=== PATIENT | female | born 1970 | race Two or more races ===

== ENCOUNTER 2021-03-10 17:37 | Emergency (ER) | payer OTHER ==
[~2021-03-10] VITALS: Ht 165.1 cm; Wt 68.0 kg
[2021-03-10] MEDS ORDERED: RELAFEN DS1000 MG PO (17:57)
[2021-03-10] MEDS ORDERED: SINGULAIR10 MG PO (17:57)
[2021-03-10] MEDS ORDERED: ZESTRIL20 MG PO (17:57)
== END 2021-03-10 20:10 | disposition home or self-care (01) ==
LOC: ER 17:37
DX: M25.561 Pain in right knee (principal)

== ENCOUNTER 2021-03-11 08:09 | Emergency (ER) | payer OTHER ==
[~2021-03-11] VITALS: Ht 160 cm; Wt 88.5 kg
[~2021-03-11 08:09] MED LIST: RELAFEN DS1000 MG PO; SINGULAIR10 MG PO; ZESTRIL20 MG PO
== END 2021-03-11 14:14 | disposition home or self-care (01) ==
LOC: ER 08:09
DX: M79.662 Pain in left lower leg (principal); M79.661 Pain in right lower leg

== ENCOUNTER → 2022-05-06 08:00 | Outpatient (CLI) | payer OTHER ==
[~2022-05-06] VITALS: Ht 160 cm; Wt 95.3 kg
[~2022-05-06 08:00] MED LIST changes: +ELIQUIS5 MG PO
== END | disposition home or self-care (01) ==
LOC: LAB 08:00 → SURH 05-13 07:00 → EDSTATUS 05-13 07:00 → SURH 05-13 10:00
PROVIDERS: ATTEND Orthopaedic Surgery
DX: T84.023A Instability of internal left knee prosthesis, initial encounter (principal); Z20.828 Contact with and (suspected) exposure to other viral communicable diseases; Z01.812 Encounter for preprocedural laboratory examination

== ENCOUNTER 2022-05-21 17:47 | Inpatient (IN) | payer OTHER ==
[~2022-05-21] VITALS: Ht 160 cm; Wt 95.3 kg
--- NOTE | 2022-05-21 17:58 | NUR ---
SE RECIBE PACIENTE ALERTA, ORIENTADA X 3 ESFERAS REFIERE SE MAREO Y SE SCOTT EN LOBATO TRABAJO SE RAJIV EN TU ,REFIERE TENER DOLOR DE TU. SE ESTIMAN S/V SE REALIZA EKG , SE PRESENTA A RACHID.PATEL.
--- NOTE | 2022-05-21 19:23 | NUR ---
PACIENTE EVALUADA POR DRA AMAN[place] [facility] [facility], SE ORIENTA A PACIENTE SOBRE EL MISMO Y REFIERE ENTENDER. SE COLECTAN MUESTRAS Y SE ADM MED BAJO MEDIDAS ASEPTICAS.
--- NOTE | 2022-05-22 08:11 | NUR ---
SE RECIBE PACIENTE DEL TURNO ANTERIOR ALERTA Y ORIENTADA X3, UBICADA EN DULCE CON BARANDAS ELEVADAS POR PRECUACION A CAIDAS. PACIENTE CONECTADA A MONITOR CARIDIACO. SE MANTIENE PACIENTE BAJO OBSERVACION POR CAMBIOS SIGNIFICATIVOS EN LOBATO TRATAMIENTO.
== END 2022-05-23 20:41 | disposition home or self-care (01) | DRG 312 ==
LOC: ER 17:47 → MEDJ 05-22 13:03 → MEDI 05-23 09:25
PROVIDERS: ADMIT Internal Medicine; ATTEND Internal Medicine
PROC: BW28ZZZ Computerized Tomography (CT Scan) of Head (ICD-10-PCS; principal; 2022-05-21)
PROC: BW40ZZZ Ultrasonography of Abdomen (ICD-10-PCS; 2022-05-21)
PROC: B030ZZZ Magnetic Resonance Imaging (MRI) of Brain (ICD-10-PCS; 2022-05-22)
PROC: B348ZZZ Ultrasonography of Bilateral Internal Carotid Arteries (ICD-10-PCS; 2022-05-22)
PROC: B345ZZZ Ultrasonography of Bilateral Common Carotid Arteries (ICD-10-PCS; 2022-05-22)
PROC: 4A12X4Z Monitoring of Cardiac Electrical Activity, External Approach (ICD-10-PCS; 2022-05-22)
DX: R55 Syncope and collapse (principal); Z20.822 Contact with and (suspected) exposure to COVID-19
CPT/HCPCS: 70551

== ENCOUNTER 2023-08-19 07:13 | Outpatient (CLI) | payer OTHER | END 2023-08-19 07:16 | disposition home or self-care (01) | LOC: NUCLEAR 07:13 | PROVIDERS: ATTEND Orthopaedic Surgery | DX: T84.092A Other mechanical complication of internal right knee prosthesis, initial encounter (principal) ==

== ENCOUNTER 2024-01-05 07:30 | Inpatient (IN) | payer OTHER ==
[2024-01-05] MEDS ORDERED: TROPOL (09:12)
[2024-01-05] MEDS ORDERED: LOSARTAN (09:12)
[2024-01-05 09:13] LABS: HEMATOCRIT 39.7 % (36.0-45.00); HEMOGLOBIN 13.8 g/dL (12.0-15.00); MEAN CELL VOLUME 88.7 fL (80.00-100.00); MEAN CORPUSCULAR HEMOGLOBIN 30.9 pg (27.00-32.0); MEAN CORPUSCULAR HGB CONC 34.8 g/dl (32.0-36.0); PLATELET COUNT 258 K/uL (150-450); RED BLOOD COUNT 4.47 M/uL (4.00-6.00); RED CELL DISTRIBUTION WIDTH 13.2 % (11.5-14.5)
[2024-01-05] MEDS ORDERED: CLARITIN (09:13)
[2024-01-05 09:19] LABS: PH,URINE 7.5 (5.0-8.0); URINE APPEARANCE Clear; URINE BILIRRUBIN Negative (NEGATIVE); URINE BLOOD Negative; URINE COLOR Yellow; URINE GLUCOSE Negative (NEGATIVE); URINE LEUKOCYTE Small; URINE NITRATE Negative; URINE PROTEIN Negative (NEGATIVE)
[2024-01-05 09:25] LABS: URINE BACTERIA 1601.1 uL (0.0-1933); URINE EPITHELIAL CELLS 27.3 uL (0.0-38.8); URINE WBC 12.3 uL (0.0-23.2)
[2024-01-05 09:48] LABS: INR 1.03; PARTIAL THROMBOPLASTIN TIME 28.3 SECONDS (22.0-34.0); PROTHROMBIN TIME 10.8 SECONDS (9.0-11.5)
[2024-01-05 10:16] LABS: ALBUMIN 3.8 gm/dL (3.4-5.0); BILIRUBIN TOTAL 0.93 mg/dL (0.3-1.2); CALCIUM 9.5 mg/dL (8.5-10.1); CREATININE SERUM 0.59 mg/dL (0.55-1.02); GFR 106.22; GLOBULINA 3.9 G/DL (2.4-3.5); POTASSIUM 3.39 mEq/L (3.5-5.1); TOTAL PROTEIN 7.7 gm/dL (6.4-8.2)
[2024-01-12] MEDS ORDERED: CEFAZOLIN SODIUM 1,000 MG VIAL ONE (14:53)
[2024-01-12] MEDS ORDERED: VANCOMYCIN HCL 1,000 MG VIAL ONE (15:21)
[2024-01-12] MEDS ORDERED: BUPIVACAINE HCL/PF 0.5% 30ML ML ONE (15:21)
[2024-01-12] MEDS ORDERED: POVIDONE-IODINE 3 EA MED..SWAB TOP ONE (15:21)
[2024-01-12] MEDS ORDERED: LIDOCAINE HCL 1%/Epi 20ML VIAL IJ ONE ×2 (15:21→22:15)
[2024-01-12] MEDS ORDERED: KETOROLAC TROMETHAMINE 60 MG VIAL IM ONE ×2 (15:21→22:15)
[2024-01-12] MEDS ORDERED: DEXAMETHASONE SODIUM PHOSPHATE 4 MG/ML VIAL ONE (16:32)
[2024-01-12] MEDS ORDERED: ONDANSETRON HCL 2 MG/ML VIAL IV PRN (18:15)
[2024-01-12] MEDS ORDERED: MORPHINE SULFATE 4 MG/ML CARTRIDGE IV PRN (18:15)
[2024-01-12] MEDS ORDERED: SODIUM CHLORIDE 0.45 % 1,000 ML IV SCH (18:15)
[2024-01-12] MEDS ORDERED: MORPHINE SULFATE 4 MG/ML CARTRIDGE IV ONE (22:15)
[2024-01-12] MEDS ORDERED: CEFAZOLIN SODIUM 1,000 MG VIAL IV ONE (22:15)
[2024-01-12] MEDS ORDERED: POVIDONE-IODINE 0.75 OZ PACKET TOP ONE (22:15)
[2024-01-12] MEDS ORDERED: VANCOMYCIN HCL 1,000 MG VIAL IR ONE (22:15)
[2024-01-12] MEDS ORDERED: BUPIVACAINE HCL/PF 0.25% 30ML VIAL InF ONE (22:15)
[2024-01-13] MEDS ORDERED: CEFAZOLIN SODIUM 1,000 MG VIAL IV SCH (01:00)
[2024-01-13] MEDS ORDERED: GABAPENTIN 300 MG CAPSULE PO SCH (01:00)
[2024-01-13 06:47] LABS: HEMOGLOBIN 12.7 g/dL (12.0-15.00); MEAN CELL VOLUME 87.7 fL (80.00-100.00); MEAN CORPUSCULAR HEMOGLOBIN 30.9 pg (27.00-32.0); MEAN CORPUSCULAR HGB CONC 35.2 g/dl (32.0-36.0); PLATELET COUNT 222 K/uL (150-450); RED CELL DISTRIBUTION WIDTH 12.9 % (11.5-14.5)
[2024-01-13] MEDS ORDERED: DUI500 PO (08:49)
[2024-01-13] MEDS ORDERED: ACETAMINOPHEN-1 EAC2 PO (08:49)
[2024-01-13] MEDS ORDERED: ELIQUIS2.5 MG PO (08:49)
[2024-01-13] MEDS ORDERED: SENNOSIDES 1 TAB TABLET PO SCH (09:00)
[2024-01-13] MEDS ORDERED: APIXABAN 2.5 MG TABLET PO SCH (09:00)
[2024-01-13] MEDS ORDERED: MONTELUKAST SODIUM 10 MG TABLET PO SCH (17:00)
[2024-01-13] MEDS ORDERED: Cyanocobalamin/Mecobalamin 1 TAB.SL SL SCH (17:41)
[2024-01-13] MEDS ORDERED: VITAMIN B COMPLEX 1 EACH PO SCH (17:41)
[2024-01-13] MEDS ORDERED: LORATADINE 10 MG TABLET PO SCH (21:00)
[2024-01-13] MEDS ORDERED: APIXABAN 5 MG TABLET PO SCH (21:00)
[2024-01-14 07:21] LABS: HEMATOCRIT 33.1 % (36.0-45.00); HEMOGLOBIN 11.7 g/dL (12.0-15.00); MEAN CELL VOLUME 89.5 fL (80.00-100.00); MEAN CORPUSCULAR HEMOGLOBIN 31.6 pg (27.00-32.0); MEAN CORPUSCULAR HGB CONC 35.3 g/dl (32.0-36.0); PLATELET COUNT 178 K/uL (150-450)
[2024-01-14] MEDS ORDERED: IRON FUM,PS/FOLIC ACID/VITC/B3 1 CAP CAPSULE PO SCH (09:00)
[2024-01-14] MEDS ORDERED: LISINOPRIL 20 MG TABLET PO SCH (09:00)
[2024-01-14] MEDS ORDERED: LOSARTAN POTASSIUM 100 MG TABLET PO SCH (09:00)
[2024-01-14] MEDS ORDERED: METOPROLOL SUCCINATE 25 MG TAB.SR.24H PO SCH (09:00)
[2024-01-15] MEDS ORDERED: DEXAMETHASONE 4 MG TABLET PO ONE (22:30)
[2024-01-15] MEDS ORDERED: DEXAMETHASONE SODIUM PHOSPHATE 4 MG/ML VIAL IV ONE (22:30)
== END 2024-01-14 14:59 | disposition home or self-care (01) | DRG 467 ==
LOC: O/R 01-12 06:30 → SURH 01-12 07:30 → OB/GYN 01-12 18:48
PROVIDERS: ADMIT Orthopaedic Surgery; ATTEND Orthopaedic Surgery
PROC: 0SRC0J9 Replacement of Right Knee Joint with Synthetic Substitute, Cemented, Open Approach (ICD-10-PCS; 2024-01-12)
PROC: 0SPC0JZ Removal of Synthetic Substitute from Right Knee Joint, Open Approach (ICD-10-PCS; principal; 2024-01-12 12:00)
DX: T84.032A Mechanical loosening of internal right knee prosthetic joint, initial encounter (principal); D62 Acute posthemorrhagic anemia; T84.018A Broken internal joint prosthesis, other site, initial encounter; M85.461 Solitary bone cyst, right tibia and fibula; M25.661 Stiffness of right knee, not elsewhere classified; M17.11 Unilateral primary osteoarthritis, right knee; I10 Essential (primary) hypertension; D64.9 Anemia, unspecified

== ENCOUNTER 2025-02-27 09:30 | Emergency (ER) | payer OTHER ==
[~2025-02-27] VITALS: Ht 162.6 cm; Wt 98.9 kg
[~2025-02-27 09:30] MED LIST changes: +ACETAMINOPHEN-1 EAC2 PO; +CLARITIN; +DUI500 PO; +ELIQUIS2.5 MG PO; +LOSARTAN; +TROPOL
[2025-02-27] MEDS ORDERED: KETOROLAC TROMETHAMINE 30 MG VIAL IV ONE (10:15)
[2025-02-27] MEDS ORDERED: 0.9 % SODIUM CHLORIDE 1,000 ML IV ONE (10:15)
[2025-02-27] MEDS ORDERED: FAMOtidine 10 MG/ML (4ML VIAL) IV ONE (10:15)
[2025-02-27] MEDS ORDERED: KETOROLAC TROMETHAMINE 30 MG VIAL ONE (10:18)
[2025-02-27] MEDS ORDERED: FAMOTIDINE/PF 20 MG/2 ML VIAL ONE (10:19)
[2025-02-27 10:58] LABS: HEMATOCRIT 38.6 % (36.0-45.00); HEMOGLOBIN 13.5 g/dL (12.0-15.00); MEAN CELL VOLUME 87.3 fL (80.00-100.00); MEAN CORPUSCULAR HEMOGLOBIN 30.5 pg (27.00-32.0); MEAN CORPUSCULAR HGB CONC 34.9 g/dl (32.0-36.0); PLATELET COUNT 262 K/uL (150-450); RED BLOOD COUNT 4.43 M/uL (4.00-6.00); RED CELL DISTRIBUTION WIDTH 13.8 % (11.5-14.5)
[2025-02-27 11:10] LABS: URINE APPEARANCE Clear; URINE BILIRRUBIN Negative (NEGATIVE); URINE BLOOD Negative; URINE COLOR Yellow; URINE GLUCOSE Negative (NEGATIVE); URINE KETONE Negative (NEGATIVE); URINE LEUKOCYTE Moderate; URINE NITRATE Negative; URINE PROTEIN Negative (NEGATIVE)
[2025-02-27 11:11] LABS: URINE BACTERIA 1974.2 uL (0.0-1933); URINE EPITHELIAL CELLS 79.6 uL (0.0-38.8)
[2025-02-27 11:14] LABS: INR 1.07; PARTIAL THROMBOPLASTIN TIME 28.1 SECONDS (22.0-34.0); PROTHROMBIN TIME 11.6 SECONDS (9.0-11.5)
[2025-02-27 11:16] LABS: ALBUMIN 3.4 gm/dL (3.4-5.0); BILIRUBIN TOTAL 0.8 mg/dL (0.3-1.2); CALCIUM 9.3 mg/dL (8.5-10.1); CREATININE SERUM 0.62 mg/dL (0.55-1.02); GFR 99.93; GLOBULINA 4.2 G/DL (2.4-3.5); TOTAL PROTEIN 7.6 gm/dL (6.4-8.2)
[2025-02-27 11:27] LABS: URINE CAST 0.29 uL (0.0-1.40)
[2025-02-27 12:36] LABS: POTASSIUM 2.9 mEq/L (3.5-5.1)
[2025-02-27] MEDS ORDERED: POTASSIUM BICARBONATE/CIT AC 25 MEQ TABLET.EFF PO ONE (12:45)
[2025-02-27] MEDS ORDERED: PEPCID AC20 MG PO (14:22)
[2025-02-27] MEDS ORDERED: BACTRIM DS TAB1 EACH PO (14:22)
== END 2025-02-27 14:30 | disposition home or self-care (01) ==
LOC: ER 09:31
PROVIDERS: General Practice
DX: N39.0 Urinary tract infection, site not specified (principal); Z88.8 Allergy status to other drugs, medicaments and biological substances; J45.909 Unspecified asthma, uncomplicated; I10 Essential (primary) hypertension; Z86.72 Personal history of thrombophlebitis
CPT/HCPCS: 36415; 74177; Q9965